=== PATIENT | male | born 1995 | race Caucasian/White ===

== ENCOUNTER → 2016-08-09 | Outpatient (CLI) | payer BC ==
--- NOTE | 2016-08-09 12:41 | DIAGNOSTIC IMAGING REPORT ---
RIGHT KNEE MRI HISTORY: RIGHT KNEE PAIN, R/O ACL TEAR Right COMPARISON STUDY: None. TECHNIQUE: Multiplanar multisequence MRI of the right knee was performed according to standard department protocol without the use of contrast. FINDINGS: Menisci: There is a vertical tear at the junction of the body and posterior horn of the medial meniscus. This is best seen on coronal image 18. The lateral meniscus is intact. Ligaments: The normal ACL is not identified and is consistent with a full-thickness ACL tear. The PCL, MCL, and LCL are intact. Extensor mechanism: The quadriceps tendon and patellar ligament are intact. Articular cartilage and bone: Small faint area of increased T2 signal within the lateral femoral condyle. This favors a small bone contusion. No fracture or dislocation. Cartilage spaces are maintained. Joint effusion: Small to moderate. Soft tissues: Intact. IMPRESSION: 1. Full-thickness ACL tear. 2. Vertical tear within the junction of the body and posterior horn of the medial meniscus. 3. Small to moderate joint effusion. Electronically signed by: Brett Mckeon M.D. 08/09/2016 12:40 PM Dictated Date/Time: 08/09/2016 12:34 PM
== END | disposition home or self-care (01) ==
LOC: C.MRI 10:33
PROVIDERS: ATTEND Specialist
DX: M23.91 Unspecified internal derangement of right knee (principal)

== ENCOUNTER → 2016-09-03 | Outpatient (CLI) | payer BC | END | disposition home or self-care (01) | LOC: C.RDSM 10:10 | PROVIDERS: ATTEND Physical Medicine & Rehabilitation Sports Medicine | DX: M25.561 Pain in right knee (principal) ==